=== PATIENT | male | born 1960 | race Asian ===

== ENCOUNTER 2016-03-31 09:05 | Outpatient (CLI) | payer BC | END 2016-03-31 23:59 | disposition home or self-care (01) | LOC: WOU 09:05 | PROVIDERS: ATTEND Specialist | DX: S31.010D Laceration without foreign body of lower back and pelvis without penetration into retroperitoneum, subsequent encounter (principal); W20.8XXD Other cause of strike by thrown, projected or falling object, subsequent encounter | CPT/HCPCS: G0463 ==